=== PATIENT | male | born 1975 | race American Indian/Alaskan Native ===

== ENCOUNTER 2017-07-21 01:51 | Emergency (ER) | payer OTHER ==
[2017-07-21 02:41] LABS: Basophils % (Auto) 0.3 % (0.0-1.8); Hematocrit 44.1 % (35.5-45.6); Hemoglobin 14.7 gm/dl (11.8-15.2); Mean Corpuscular HGB Conc 33 % (32-34); Mean Corpuscular Hemoglobin 29 pg (28-32); Mean Corpuscular Volume 86 fl (84-94); Platelet Count 216 K/mm3 (140-440); Red Blood Count 5.11 M/mm3 (3.65-5.03); Red Cell Distribution Width 14.4 % (13.2-15.2); White Blood Count 9.6 K/mm3 (4.5-11.0)
[2017-07-21 02:58] LABS: Anion Gap 20 mmol/L; BUN/Creatinine Ratio 13; Blood Urea Nitrogen 9 mg/dL (9-20); Carbon Dioxide 23 mmol/L (22-30); Chloride 99.2 mmol/L (98-107); Glucose 203 mg/dL (75-100); Potassium 3.4 mmol/L (3.6-5.0); Sodium 139 mmol/L (137-145)
[2017-07-21 04:07] LABS: Urine Drugs of Abuse Note Disclamer
[2017-07-21 04:40] LABS: Bilirubin,Urine NEG (Negative); Blood,Urine SM (Negative); Ketones,Urine NEG (Negative); Leukocyte Esterase,Urine NEG (Negative); Mucus,Urine FEW /HPF; Nitrite,Urine NEG (Negative); Protein,Urine <15 mg/dL mg/dL (Negative); Urobilinogen,Urine < 2.0 mg/dL (<2.0)
[2017-07-21 05:17] VITALS: BP 140/85
[2017-07-21] MEDS ORDERED: TYLENOL PO ONE (06:56)
--- NOTE | 2017-07-21 06:58 | Emergency Department Report ---
HPI - General Chief Complaint: Psych Time Seen by Provider: 07/21/17 06:30 - HPI HPI: 41-year-old after [place] male presents to the emergency department with complaint of being out of his medications since last February. He says that he does hear some intermittent auditory hallucinations. He denies any visual hallucinations. He denies any suicidal or homicidal ideations. He says that the last time he felt any suicidal or homicidal ideations was a few years ago. He has a past medical history of bipolar disorder, schizophrenia and depression. He says he was previously on Remeron, Seroquel and Haldol. Patient admits to cocaine use about 2-3 days ago. He does not appear intoxicated. ED Past Medical Hx - Past Medical History Previous Medical History?: Yes Hx Psychiatric Treatment: Yes (bi polar, schizophrenia, depression) - Surgical History Past Surgical History?: No - Social History Smoking Status: Current Every Day Smoker Substance Use Type: None - Medications Home Medications: Home Medications Medication Instructions Recorded Confirmed Last Taken Type ALBUTEROL Inhaler [ProAir HFA 2 puff IH QID PRN #1 inhalation 07/21/17 Unknown Rx Inhaler] Benzonatate [Tessalon Perles] 100 mg PO Q8HR PRN #20 capsule 07/21/17 Unknown Rx guaiFENesin [Mucinex] 600 mg PO BID PRN #16 tab.er.12h 07/21/17 Unknown Rx ED Review of Systems ROS: Stated complaint: MED. REFILL Other details as noted in HPI Comment: All other systems reviewed and negative Constitutional: denies: chills, fever Eyes: denies: eye pain, eye discharge, vision change ENT: denies: ear pain, throat pain Respiratory: denies: cough, shortness of breath, wheezing Cardiovascular: denies: chest pain, palpitations Gastrointestinal: denies: abdominal pain, nausea, diarrhea Genitourinary: denies: urgency, dysuria Musculoskeletal: denies: back pain, joint swelling, arthralgia Skin: denies: rash, lesions Neurological: denies: headache, weakness, paresthesias Psychiatric: depression, auditory hallucinations. denies: homicidal thoughts, suicidal thoughts Physical Exam - Physical Exam Vital Signs: Vital Signs 07/21/17 07/21/17 07/21/17 02:11 02:21 05:15 Temperature 99.9 F H 99.3 F 100.4 F H Pulse Rate 101 H 101 H 98 H Respiratory 20 17 20 Rate Blood Pressure 142/86 142/89 Blood Pressure 140/85 [Left] O2 Sat by Pulse 100 99 96 Oximetry 07/21/17 06:17 Temperature Pulse Rate Respiratory 16 Rate Blood Pressure Blood Pressure [Left] O2 Sat by Pulse 99 Oximetry Physical Exam: GENERAL: The patient is well-developed well-nourished. HENT: Normocephalic. Atraumatic. Patient has moist mucous membranes. EYES: Extraocular motions are intact. Pupils equal reactive to light bilaterally. NECK: Supple. Trachea is midline. CHEST/LUNGS: Clear to auscultation. There is an occasional productive cough heard during examination. No tachypnea or accessory muscle use. There is no respiratory distress noted. HEART/CARDIOVASCULAR: Regular. There is no tachycardia. There is no gallop rub or murmur. ABDOMEN: Abdomen is soft, nontender. Patient has normal bowel sounds. There is no abdominal distention. SKIN: Skin is warm and dry. NEURO: The patient is awake, alert, and oriented. The patient is cooperative. The patient has no focal neurologic deficits. The patient has normal speech. MUSCULOSKELETAL: There is no tenderness or deformity. There is no limitation range of motion. There is no evidence of acute injury. PSYCH: Patient is calm and appropriate. ED Course Vital Signs 07/21/17 07/21/17 07/21/17 02:11 02:21 05:15 Temperature 99.9 F H 99.3 F 100.4 F H Pulse Rate 101 H 101 H 98 H Respiratory 20 17 20 Rate Blood Pressure 142/86 142/89 Blood Pressure 140/85 [Left] O2 Sat by Pulse 100 99 96 Oximetry 07/21/17 06:17 Temperature Pulse Rate Respiratory 16 Rate Blood Pressure Blood Pressure [Left] O2 Sat by Pulse 99 Oximetry ED Medical Decision Making - Lab Data Result diagrams: 07/21/17 02:28 07/21/17 02:28 - Radiology Data Radiology results: image reviewed interpreted by me: Chest x-ray does not show any acute process. There are no pleural effusions, obvious pneumonia and there is no pneumothorax. - Medical Decision Making This is a 41-year-old male presents originally for some medication refills for his psychiatric conditions. He has not been on them for at least 5 or 6 months , if not longer. While he does have a history of bipolar disorder and/or schizophrenia, he does not complain of any current visual hallucinations, suicidal or homicidal ideations. He does have some intermittent auditory hallucinations but they do not appear to be affecting his activities of daily living or causing any acute psychosis. He was seen by the crisis counselor who agrees with the patient does not appear to be a candidate to be made a 1013 and does not require inpatient psychiatric admission at this time. He'll be given referrals for outpatient psych to restart his medications and we discussed return to the emergency department with any worsening of his symptoms or any acute distress. His labs are mostly unremarkable. He did have a fever here and a cough recently. A chest x-ray was done that did not show any signs of pneumonia. He was given some Tylenol for his fever and Tessalon Perles for his cough. He was given outpatient referrals for primary care. - Differential Diagnosis URI, pneumonia, bipolar disorder, schizophrenia Critical Care Time: No Critical care attestation.: If time is entered above; I have spent that time in minutes in the direct care of this critically ill patient, excluding procedure time. ED Disposition Clinical Impression: Bipolar disorder Qualifiers: Active/Remission status: remission status unspecified Qualified Code(s): F31.9 - Bipolar disorder, unspecified Schizophrenia Qualifiers: Schizophrenia type: unspecified Qualified Code(s): F20.9 - Schizophrenia, unspecified Upper respiratory infection Qualifiers: URI type: unspecified URI Qualified Code(s): J06.9 - Acute upper respiratory infection, unspecified Disposition: DC-01 TO HOME OR SELFCARE Is pt being admited?: No Condition: Stable Instructions: Bipolar Disorder (ED), Schizophrenia (ED), Upper Respiratory Infection (ED), Suicide Prevention for Adults (ED) Additional Instructions: Please follow up with a psychiatrist or the [facility] regarding your psychiatric diagnosis and restarting your psychiatric medications. The [facility] facility takes both walk-ins and appointments. Return to the emergency department immediately with any worsening of her symptoms, thoughts of harming yourself or others, or any acute distress. Prescriptions: ALBUTEROL Inhaler [ProAir HFA Inhaler] 2 puff IH QID PRN #1 inhalation PRN Reason: Shortness Of Breath Benzonatate [Tessalon Perles] 100 mg PO Q8HR PRN #20 capsule PRN Reason: Cough guaiFENesin [Mucinex] 600 mg PO BID PRN #16 tab.er.12h PRN Reason: Congestion Referrals: [facility] [Outside] - [facility] [Outside] - [facility] ESTHELA HENDERSON MD [Referring] - [facility] Time of Disposition: 06:59
--- NOTE | 2017-07-21 09:15 | XRay Report ---
CHEST TWO VIEWS: 07/21/17 01:51:00 CLINICAL: Cough and fever. COMPARISON: None FINDINGS: Normal heart and pulmonary vasculature. The lungs are clear.The bones and soft tissues are unremarkable. IMPRESSION: Normal chest.
== END 2017-07-21 08:44 | disposition home or self-care (01) ==
LOC: ED 01:51
DX: F31.9 Bipolar disorder, unspecified (principal); F20.9 Schizophrenia, unspecified; J06.9 Acute upper respiratory infection, unspecified; F17.200 Nicotine dependence, unspecified, uncomplicated
CPT/HCPCS: 36415; 71020; 80048; 80307; 81001; 85025; 99284; G0480; 80320

== ENCOUNTER 2017-07-21 23:36 | Emergency (ER) | payer SELFPAY ==
[2017-07-22] MEDS ORDERED: VALIUM IM ONE (01:33)
[2017-07-22] MEDS ORDERED: NACL 0.9% 1000 ML 2,000 ML IV ONE (01:33)
--- NOTE | 2017-07-22 01:35 | Emergency Department Report ---
ED General Adult HPI - General Chief complaint: Psych Stated complaint: MH Time Seen by Provider: 07/22/17 00:37 Source: patient, RN notes reviewed, old records reviewed Mode of arrival: Ambulatory Limitations: Other (patient disorganized, appears psychotic patient is a poor historian) - History of Present Illness Initial comments: This is a 41-year-old male who was previously unknown to this provider. Past medical history includes bipolar, schizophrenia and depression. The patient is a very poor historian. The patient presents to the ER with an initial complaint requesting to have his medications refilled. Patient denies homicidality and suicidality, however as per triage nurse documentation, was exhibiting hallucination-like behavior outside at a local gas station. The patient to me denies homicidality, suicidality, access to guns and firearms. He did endorse nonspecific chest tightness which has been present for a few days , he reports ingesting cocaine a few days ago. No pulmonary embolus or DVT risk factors. -: Gradual Location: chest Radiation: non-radiation Quality: other (per hpi) Improves with: none Worsens with: none Associated Symptoms: confusion. denies: cough, diaphoresis, fever/chills - Related Data Previous Rx's Medication Instructions Recorded Last Taken Type ALBUTEROL Inhaler [ProAir HFA 2 puff IH QID PRN #1 inhalation 07/21/17 Unknown Rx Inhaler] Benzonatate [Tessalon Perles] 100 mg PO Q8HR PRN #20 capsule 07/21/17 Unknown Rx guaiFENesin [Mucinex] 600 mg PO BID PRN #16 tab.er.12h 07/21/17 Unknown Rx Allergies Allergy/AdvReac Type Severity Reaction Status Date / Time No Known Allergies Allergy Verified 07/22/17 04:16 ED Review of Systems ROS: Stated complaint: MH Other details as noted in HPI Constitutional: denies: fever Eyes: denies: eye discharge ENT: denies: epistaxis Respiratory: denies: cough Cardiovascular: as per HPI Gastrointestinal: vomiting Genitourinary: as per HPI Musculoskeletal: as per HPI Skin: as per HPI Psychiatric: denies: homicidal thoughts, suicidal thoughts ED Past Medical Hx - Past Medical History Previous Medical History?: Yes Hx Psychiatric Treatment: Yes (bi polar, schizophrenia, depression) - Social History Smoking Status: Current Every Day Smoker Substance Use Type: Alcohol, Cocaine, Prescribed, Tranquilizers, Methamphetamines - Medications Home Medications: Home Medications Medication Instructions Recorded Confirmed Last Taken Type ALBUTEROL Inhaler [ProAir HFA 2 puff IH QID PRN #1 inhalation 07/21/17 07/22/17 Unknown Rx Inhaler] Benzonatate [Tessalon Perles] 100 mg PO Q8HR PRN #20 capsule 07/21/17 07/22/17 Unknown Rx guaiFENesin [Mucinex] 600 mg PO BID PRN #16 tab.er.12h 07/21/17 07/22/17 Unknown Rx ED Physical Exam - General Limitations: Other (patient is agitated, disorganized, patient is a poor historian) General appearance: anxious - Head Head exam: Present: atraumatic, normocephalic - Eye Eye exam: Present: normal appearance, EOMI. Absent: nystagmus - ENT ENT exam: Present: normal exam, normal orophraynx, mucous membranes moist, normal external ear exam - Neck Neck exam: Present: normal inspection, full ROM - Respiratory Respiratory exam: Present: normal lung sounds bilaterally. Absent: respiratory distress - Cardiovascular Cardiovascular Exam: Present: normal rhythm, tachycardia, normal heart sounds. Absent: systolic murmur, diastolic murmur, rubs, gallop - GI/Abdominal GI/Abdominal exam: Present: soft, normal bowel sounds. Absent: distended, tenderness, guarding, rebound, rigid, pulsatile mass - Rectal Rectal exam: Present: deferred - Extremities Exam Extremities exam: Present: normal inspection, full ROM, normal capillary refill. Absent: pedal edema, joint swelling, calf tenderness - Back Exam Back exam: Present: normal inspection, full ROM. Absent: tenderness, CVA tenderness (R), paraspinal tenderness, vertebral tenderness - Neurological Exam Neurological exam: Present: alert, oriented X3, normal gait, other (Extraocular movements intact. Tongue midline. No facial droop. Facial sensation intact to light touch in the V1, V2, V3 distribution bilaterally. 5 and 5 strength in 4 extremities.. Sensation is intact to light touch in 4 extremities.). Absent : motor sensory deficit - Psychiatric Psychiatric exam: Present: agitated, anxious. Absent: homicidal ideation, suicidal ideation - Skin Skin exam: Present: warm, dry, intact, normal color. Absent: rash ED Course Vital Signs 07/21/17 07/22/17 07/22/17 23:43 00:45 03:11 Temperature 98.5 F 98.5 F Pulse Rate 108 H 120 H 99 H Respiratory 20 18 Rate Blood Pressure 154/94 Blood Pressure 150/98 122/65 [Left] O2 Sat by Pulse 99 98 Oximetry 07/22/17 07/22/17 07/23/17 08:45 20:22 06:22 Temperature 98.4 F 98 F Pulse Rate 53 L 88 88 Respiratory 16 18 Rate Blood Pressure Blood Pressure 107/67 103/76 143/77 [Left] O2 Sat by Pulse 93 100 Oximetry 07/23/17 07/23/17 07/23/17 16:00 18:55 19:47 Temperature 98 F 99.0 F Pulse Rate 96 H 80 Respiratory 20 18 18 Rate Blood Pressure Blood Pressure 134/67 149/80 [Left] O2 Sat by Pulse 99 99 98 Oximetry 07/24/17 07/24/17 10:12 14:13 Temperature 97.8 F Pulse Rate 90 Respiratory 20 18 Rate Blood Pressure Blood Pressure 109/55 [Left] O2 Sat by Pulse 98 96 Oximetry - Reevaluation(s) Reevaluation #1: 07/22/17 03:00 Differential diagnosis, including but not limited to: Anxiety, toxic effect of drugs, myositis, pericarditis, myocarditis Assessment and plan: 41-year-old male with tachycardia, either prior to evaluation. Patient appears to be quite anxious. Troponin negative, creatinine kinase not consistent with rhabdomyolysis, patient given 2 additional IV fluid and 5 mg of valium IV, his tachycardia improved, no documented fevers were noted in the ER. Serum toxicology studies were negative, creatinine kinase will improve with IV and oral fluids, chest x-ray earlier on today was negative. Symptoms present for greater than 24 hours. Troponins have been sent 1, repeat set is pending. Patient is placed on a 1013 given disorganized behavior. 07/22/17 03:03 Reevaluation #2: 07/22/17 03:04 Patient resting comfortably on stretcher, his heart rate has decreased to 101 bpm, appears more cooperative. Reevaluation #3: 07/22/17 04:06 Patient more agitated and combative. Not responding to verbal de-escalation techniques or show of force. Haldol/Ativan ordered. Soft restraints ordered. Hospital policies for soft restraints will be followed and adhered to. For patient's safety and for staff safety, patient requires chemical restraints. Reevaluation #4: 07/22/17 05:05 Repeat EKG is unremarkable and unchanged. Repeat troponin is pending. Patient complained of wrist pain, there is no tenderness on my wrist exam and an x-ray of the wrist is negative. Reevaluation #5: 07/22/17 05:23 Troponin is negative 2, patient resting comfortably, repeat EKG unchanged, at this point in time, there does not appear to be an immediate medical contraindication to psychiatric admission, evaluation and consultation. Crisis team is paged and informed ED Medical Decision Making - Lab Data Result diagrams: 07/24/17 04:52 07/22/17 01:46 Vital Signs 07/21/17 23:43 Temperature 98.5 F Pulse Rate 108 H Blood Pressure 154/94 O2 Sat by Pulse 99 Oximetry Lab Results 07/22/17 07/22/17 07/22/17 Range/Units 01:46 01:46 01:46 Sodium (137-145) mmol/L Potassium (3.6-5.0) mmol/L Chloride (98-107) mmol/L Carbon Dioxide (22-30) mmol/L Anion Gap mmol/L BUN (9-20) mg/dL Creatinine (0.8-1.5) mg/dL Estimated GFR ml/min BUN/Creatinine Ratio % Glucose (75-100) mg/dL Calcium (8.4-10.2) mg/dL Total Creatine Kinase 646 H (55-170) units/L Troponin T (0.00-0.029) ng/mL Salicylates < 0.3 L (2.8-20.0) mg/dL Acetaminophen < 15.0 (10.0-30.0) ug/mL Plasma/Serum Alcohol (0-0.07) gm% 07/22/17 07/22/17 Range/Units 01:46 01:46 Sodium 136 L (137-145) mmol/L Potassium 3.3 L (3.6-5.0) mmol/L Chloride 96.9 L (98-107) mmol/L Carbon Dioxide 23 (22-30) mmol/L Anion Gap 19 mmol/L BUN 9 (9-20) mg/dL Creatinine 0.8 (0.8-1.5) mg/dL Estimated GFR > 60 ml/min BUN/Creatinine Ratio 11 % Glucose 272 H (75-100) mg/dL Calcium 8.8 (8.4-10.2) mg/dL Total Creatine Kinase (55-170) units/L Troponin T < 0.010 (0.00-0.029) ng/mL Salicylates (2.8-20.0) mg/dL Acetaminophen (10.0-30.0) ug/mL Plasma/Serum Alcohol < 0.01 (0-0.07) gm% - EKG Data -: EKG Interpreted by Ma EKG shows normal: sinus rhythm Rate: normal - EKG Data 07/22/17 03:04 Sinus tachycardia, 114 bpm, high left ventricular voltage, abnormal EKG, not consistent with ST elevation myocardial infarction 07/22/17 05:05 EKG #2 was unchanged from prior. - Radiology Data Radiology results: report reviewed, image reviewed X-ray of the chest within the past 24 hours is negative for acute disease X-ray of the right wrist is negative Critical care attestation.: If time is entered above; I have spent that time in minutes in the direct care of this critically ill patient, excluding procedure time. ED Disposition Clinical Impression: Upper respiratory infection Qualifiers: URI type: unspecified URI Qualified Code(s): J06.9 - Acute upper respiratory infection, unspecified Schizophrenia Qualifiers: Schizophrenia type: unspecified Qualified Code(s): F20.9 - Schizophrenia, unspecified Disposition: DC/TX-65 PSY HOSP/PSY UNIT Is pt being admited?: No Does the pt Need Aspirin: No Condition: Good Referrals: PRIMARY CARE, [Primary Care Provider] - 3-5 Days
[2017-07-22 02:36] LABS: BUN/Creatinine Ratio 11; Blood Urea Nitrogen 9 mg/dL (9-20); Calcium 8.8 mg/dL (8.4-10.2); Carbon Dioxide 23 mmol/L (22-30); Glucose 272 mg/dL (75-100)
[2017-07-22 02:37] LABS: Anion Gap 19 mmol/L; Chloride 96.9 mmol/L (98-107); Potassium 3.3 mmol/L (3.6-5.0); Sodium 136 mmol/L (137-145)
[2017-07-22] MEDS ORDERED: HALDOL IM PRN (03:39)
[2017-07-22] MEDS ORDERED: ATIVAN IM PRN (03:39)
[2017-07-22] MEDS ORDERED: GEODON IM ONE ×2 (04:18→04:30)
--- NOTE | 2017-07-22 04:59 | XRay Report ---
FINAL REPORT EXAM: XR WRIST 2V RT HISTORY: right wrist injury TECHNIQUE: AP and lateral views of the right wrist were submitted. FINDINGS: There is no evidence of fracture or soft tissue injury. The navicular bone appears intact. IMPRESSION: Negative exam. If localized wrist pains persists, repeat study in 7-10 days is recommended to evaluate for occult fracture.
--- NOTE | 2017-07-22 15:51 | Consultation ---
History of Present Illness - Reason for Consult Reason for consult: disorganized Medications and Allergies Allergies Allergy/AdvReac Type Severity Reaction Status Date / Time No Known Allergies Allergy Verified 07/22/17 04:16 Home Medications Medication Instructions Recorded Confirmed Last Taken Type ALBUTEROL Inhaler [ProAir HFA 2 puff IH QID PRN #1 inhalation 07/21/17 07/22/17 Unknown Rx Inhaler] Benzonatate [Tessalon Perles] 100 mg PO Q8HR PRN #20 capsule 07/21/17 07/22/17 Unknown Rx guaiFENesin [Mucinex] 600 mg PO BID PRN #16 tab.er.12h 07/21/17 07/22/17 Unknown Rx Active Meds: Active Medications Haloperidol Lactate (Haldol) 5 mg IM Q6HR PRN PRN Reason: Agitation Last Admin: 07/22/17 04:15 Dose: 5 mg Lorazepam (Ativan) 2 mg IM Q4HR PRN PRN Reason: Agitation Last Admin: 07/22/17 04:16 Dose: 2 mg Mental Status Exam - Vital signs Last Vital Signs Temp 98.4 F 07/22/17 08:45 Pulse 53 L 07/22/17 08:45 Resp 16 07/22/17 08:45 BP 107/67 07/22/17 08:45 Pulse Ox 93 07/22/17 08:45 Results Result Diagrams: 07/22/17 01:46 Abnormal lab results 07/22/17 07/22/17 07/22/17 Range/Units 01:46 01:46 01:46 Sodium 136 L (137-145) mmol/L Potassium 3.3 L (3.6-5.0) mmol/L Chloride 96.9 L (98-107) mmol/L Glucose 272 H (75-100) mg/dL Total Creatine Kinase 646 H (55-170) units/L Salicylates < 0.3 L (2.8-20.0) mg/dL All other labs normal. Assessment and Plan Assessment and plan: CHIEF COMPLAINT IN PATIENTS WORDS: HISTORY OF PRESENT ILLNESS: This is a 41-year-old male with past psychiatric history of schizophrenia who now reports to the ER requesting refill on his medication. Patient was reportedly observed being disorganized and confused. Per collateral information and review the medical records, patient was recently incarcerated for past 8 years and released on February 2017. At the current time, he reports living with his girlfriend and obtaining outpatient care Za[facility] thiago. On my examination, patient was very sedate and noted that he was given several when necessary medications to manage his agitation. Patient was unable to recall the phone numbers of his girlfriend or his mother when I requested them. Given the collateral information which suggests the patient is fairly disorganized and has been agitated, we will continue to assess this patient and treat him according to his disorganized presentation. PSYCHIATRIC REVIEW OF SYSTEMS: Substance: recent cocaine use Detoxification/Withdrawal: none noted CURRENT MEDICATIONS: Remeron Seroquel Bendryl ALLERGIES: NKDA PAST PSYCHIATRIC HISTORY: Inpatient: unknown Outpatient: unknown Prior Suicide Attempts: unknown Prior Self-Injurious Behaviors: unknown PAST PSYCHIATRIC MEDICATION TRIALS: unknown MEDICAL HISTORY: Denies MENTAL STATUS EXAM: General Appearance: Dressed in hospital gown, sedate Sensorium/Consciousness: sedated and responding to external stimuli Eye Contact: limited Attitude / Behavior: PMR, sleepy Psychomotor & Musculoskeletal Activity: WNL Mood: fine Affect: blunted Speech / Language: normal, when awake Thought Processes: perseveration Thought Content: RM Perception: RM Orientation: person, place Judgment What would you do if you smelled smoke in a crowded movie theater?: poor/impulsive Insight: poor Intelligence Vocabulary, general fund of knowledge, educational level: Average Capacity of ADLs: Independent STRENGTHS: PSYCHOSOCIAL AND ENVIRONMENTAL STRESSORS: ASSESSMENT: Unspecified psychotic disorder Rule out Schizophrenia PLAN OF CARE: Reconcile home medications Start Seroquel and Remeron
[2017-07-22] MEDS: REMERON PO SCH (21:32)
--- NOTE | 2017-07-23 10:43 | Progress Note ---
Subjective - Reason for Consult Consult date: 07/23/17 Reason for consult: Psychiatry Follow-up - Chief Complaint Chief complaint: This is a 41-year-old male with past psychiatric history of schizophrenia who now reports to the ER requesting refill on his medication. Today patient is calm and cooperative during the assessment. Patient is more organized today than yesterday per the initial consult note. He acknowledged not taking his medications in weeks prior to [facility] He was able to give me his mother's number and stated that he is seen at [facility] for outpatient psy services. He denies SI/HI's and AVH's. He denies any side effects of his medications. Mental Status Exam - Vital signs Last Vital Signs Temp 98 F 07/22/17 20:22 Pulse 88 07/23/17 06:22 Resp 18 07/22/17 20:22 BP 143/77 07/23/17 06:22 Pulse Ox 100 07/22/17 20:22 - Exam Narrative exam: MSE: Appearance: calm, cooperative Behavior: regular eye contact Speech: regular rate and tone Mood: "okay" Affect: congruent to mood Thought Process: circumstantial Thought Content: denies SI/HI's and AVH's Motor Activity: ambulatory Cognition: A/O x3 Insight: variable Judgment: variable Assessment and Plan Impression: Unspecified Psychosis on admission. Today patient is calm, cooperative, and more organized during the assessment. DDx: R/O Schizophrenia Recommendation/Plan: Continue 1013 and gather collateral information for proper dispo. Continue Seroquel 200 mg PO HS for psychosis and Remeron 15 mg PO HS for sleep consolidation.
[2017-07-23 19:17] LABS: Urine Drugs of Abuse Note Disclamer
[2017-07-23 19:25] LABS: Bilirubin,Urine NEG (Negative); Blood,Urine NEG (Negative); Ketones,Urine NEG (Negative); Leukocyte Esterase,Urine NEG (Negative); Mucus,Urine FEW /HPF; Nitrite,Urine NEG (Negative); Protein,Urine <15 mg/dL mg/dL (Negative); Urobilinogen,Urine < 2.0 mg/dL (<2.0)
[2017-07-23] MEDS: REMERON PO SCH (21:30)
[2017-07-24 05:25] LABS: Basophils % (Auto) 0.7 % (0.0-1.8); Eosinophils % (Auto) 4.2 % (0.0-4.3); Hematocrit 43.2 % (35.5-45.6); Mean Corpuscular HGB Conc 32 % (32-34); Mean Corpuscular Hemoglobin 28 pg (28-32); Mean Corpuscular Volume 85 fl (84-94); Platelet Count 258 K/mm3 (140-440); Red Blood Count 5.08 M/mm3 (3.65-5.03); Red Cell Distribution Width 14.3 % (13.2-15.2); White Blood Count 6.4 K/mm3 (4.5-11.0)
--- NOTE | 2017-07-24 11:43 | Progress Note ---
Subjective - Reason for Consult Consult date: 07/24/17 Reason for consult: Psychiatry Follow-up - Chief Complaint Chief complaint: This is a 41-year-old male with past psychiatric history of schizophrenia who now reports to the ER requesting refill on his medication. Today patient is calm and cooperative during the assessment. Patient stated that he will be compliant with his medications when discharged. Per collateral information from his mother Lul Elizabeth, she stated that her son was not taking his medication prior to his admission to [facility]. She stated that he will be following up with [facility] for outpatient psy services. The patient denies SI/HI's and AVH's. He denies any side effects of his medications. Mental Status Exam - Vital signs Last Vital Signs Temp 99.0 F 07/23/17 19:47 Pulse 80 07/23/17 19:47 Resp 20 07/24/17 10:12 BP 149/80 07/23/17 19:47 Pulse Ox 98 07/24/17 10:12 - Exam Narrative exam: MSE: Appearance: calm, cooperative Behavior: regular eye contact Speech: regular rate and tone Mood: "well" Affect: congruent to mood Thought Process: logical Thought Content: denies SI/HI's and AVH's Motor Activity: ambulatory Cognition: A/O x3 Insight: fair Judgment: fair Assessment and Plan Impression: Unspecified Psychosis on admission. Today patient is calm, cooperative, and more organized during the assessment. DDx: R/O Schizophrenia Recommendation/Plan: Rescind 1013. Continue Seroquel 200 mg PO HS for psychosis and Remeron 15 mg PO HS for sleep consolidation. Discussed possible metabolic side effects of Seroquel with patient. Discussed possible suicidality/ medication induced albert with patient reference Remeron. Patient can follow-up with [facility] for outpatient psy services when discharged. [employer] involvement, patient will need assistance with transportation back to his residence.
[2017-07-24 14:14] VITALS: BP 109/55
== END 2017-07-24 15:02 ==
LOC: ED 23:36 → EEVIPCON 23:36 → ED 07-24 15:02
DX: F20.9 Schizophrenia, unspecified (principal); J06.9 Acute upper respiratory infection, unspecified; F31.9 Bipolar disorder, unspecified; F17.200 Nicotine dependence, unspecified, uncomplicated; F14.10 Cocaine abuse, uncomplicated; F15.10 Other stimulant abuse, uncomplicated
CPT/HCPCS: 36415; 80048; 80307; 81001; 82550; 82962; 84484; 85025; 96360; 96361; 96372; 99285; G0480; J1630; J2060; J3360; J3486; J7030; 80320